=== PATIENT | male | born 1955 | race Caucasian/White ===

== ENCOUNTER 2017-08-29 19:19 | Emergency (ER) | payer OTHER ==
[~2017-08-29] VITALS: Ht 177.8 cm; Wt 99.1 kg
[2017-08-29] MEDS ORDERED: LISI-662 PO (19:23)
[2017-08-29] MEDS ORDERED: BACITRACIN 0.9 GM PACKET OINTMENT TP ONE (20:00)
[2017-08-29] MEDS ORDERED: PERTUSS(ACELL),DIPH,TET VAC/PF 0.5 ML VIAL IM ONE (20:00)
[2017-08-29] MEDS ORDERED: LIDOCAINE HCL/PF 1% 5 ML VIAL INJ ONE (20:00)
[2017-08-29 21:01] VITALS: BP 156/92
== END 2017-08-29 21:13 | disposition home or self-care (01) ==
LOC: EEVIPCON 19:20 → EMS 19:20
DX: S61.213A Laceration without foreign body of left middle finger without damage to nail, initial encounter (principal); I10 Essential (primary) hypertension; W45.8XXA Other foreign body or object entering through skin, initial encounter; Y93.89 Activity, other specified; Y92.89 Other specified places as the place of occurrence of the external cause; Y99.8 Other external cause status
CPT/HCPCS: 12001; 90471; 90715; 99283; J3490

== ENCOUNTER → 2017-09-15 | Outpatient (CLI) | payer OTHER ==
[~2017-09-15] MED LIST: LISI-662 PO; TNFMISC; albuterol IH
[2017-09-15 16:13] LABS: HEMOGLOBIN A1C 6.1 % (4.5-6.2)
[2017-09-15 16:27] LABS: ALANINE AMINOTRANSFERASE 47 U/L (12-78); ALBUMIN 4.2 g/dL (3.4-5.0); ALKALINE PHOSPHATASE 66 U/L (46-116); ANION GAP 11 mmol/L (8-16); ASPARTATE AMINOTRANSFERASE 26 U/L (15-37); BILIRUBIN,TOTAL 0.4 mg/dL (0.1-1.0); CALCIUM, TOTAL 8.9 mg/dL (8.8-10.5); CARBON DIOXIDE 23 mmol/L (22-29); CHLORIDE 103 mmol/L (98-107); CHOL/HDL RATIO 6.8 (4.2-7.3); CHOLESTEROL 271 mg/dL (131-200); CREATININE 1.06 mg/dL (0.60-1.30); GLOMERULAR FILTR. RATE CALC > 60 mL/min (>60); GLUCOSE,RANDOM 95 mg/dL (70-110); HDL CHOLESTEROL 40 mg/dL (40-60); LDL CHOL (CALC.) 161 mg/dL (0-130); POTASSIUM 4.4 mmol/L (3.5-5.1); SODIUM SERUM 137 mmol/L (136-145); THYROID STIMULATING HORMONE 1.54 uIU/mL (0.36-3.74); TOTAL PROTEIN, SERUM 7.6 g/dL (6.4-8.2); TRIGLYCERIDES 351 mg/dL (15-150); UREA NITROGEN, BLOOD 14 mg/dL (7-18)
[2017-09-15 16:34] LABS: PROSTATE SPECIFIC ANTIGEN 0.44 ng/mL (0.00-4.00)
[2017-09-16 10:00] LABS: VITAMIN B12 LEVEL 429 pg/mL (211-911)
[2017-09-16 10:02] LABS: FOLATE SERUM > 24.0 ng/mL (5.4-)
== END | disposition home or self-care (01) ==
LOC: MSR 10:36
PROVIDERS: ATTEND Internal Medicine Geriatric Medicine
DX: M51.37 Other intervertebral disc degeneration, lumbosacral region (principal); M77.8 Other enthesopathies, not elsewhere classified; M46.06 Spinal enthesopathy, lumbar region; M46.04 Spinal enthesopathy, thoracic region; I10 Essential (primary) hypertension
CPT/HCPCS: 72070; 72100; 82607; 82746; 83036; 84153; 84443

== ENCOUNTER 2019-04-14 04:53 | Emergency (ER) | payer OTHER ==
[~2019-04-14] VITALS: Ht 180.3 cm; Wt 100.0 kg
[2019-04-14 05:30] LABS: BASOPHILS % (AUTO) 0.5 % (0.0-2.0); EOSINOPHILS % (AUTO) 1.5 % (1.0-6.0); HEMATOCRIT 43.4 % (41-53); HEMOGLOBIN 14.8 g/dL (13.5-17.5); LYMPHOCYTES # (AUTO) 1.8 K/uL (1.0-4.8); LYMPHOCYTES % (AUTO) 24.9 % (22.0-44.0); MEAN CORPUSCULAR HEMOGLOBIN 29.1 pg (26.0-34.0); MEAN CORPUSCULAR HGB CONC 34.1 G/dL (31.0-37.0); MEAN CORPUSCULAR VOLUME 85 fL (80-100); MONOCYTES # (AUTO) 0.4 K/uL (0.1-1.0); MONOCYTES % (AUTO) 5.7 % (2.0-9.0); NEUTROPHILS % (AUTO) 67.4 % (40.0-70.0); PLATELET COUNT (AUTO) 244 K/uL (150-450); RED BLOOD CELL COUNT(AUTO) 5.09 MIL/uL (4.50-5.90); RED CELL DISTRIBUTION WIDTH 13.7 % (11.5-14.5)
[2019-04-14 05:31] LABS: APPEARANCE,URINE CLOUDY (CLEAR); BILIRUBIN,URINE NEGATIVE (NEGATIVE); GLUCOSE, URINE (UA) NEGATIVE (NEGATIVE); KETONES,URINE NEGATIVE (NEGATIVE); LEUKOCYTE ESTERASE ,URINE TRACE (NEGATIVE); NITRATE,URINE NEGATIVE (NEGATIVE); OCCULT BLOOD,URINE LARGE (NEGATIVE); PROTEIN,URINE POS 1+ (NEGATIVE); UROBILINOGEN,URINE 0.2 mg/dL (<=1.0)
[2019-04-14 05:37] LABS: ANION GAP 8 mmol/L (8-16); CALCIUM, TOTAL 8.6 mg/dL (8.8-10.5); CARBON DIOXIDE 27 mmol/L (22-29); CHLORIDE 105 mmol/L (98-107); CREATININE 0.97 mg/dL (0.60-1.30); GLOMERULAR FILTR. RATE CALC > 60 mL/min (>60); GLUCOSE,RANDOM 157 mg/dL (70-110); POTASSIUM 4.7 mmol/L (3.5-5.1); SODIUM SERUM 140 mmol/L (136-145); UREA NITROGEN, BLOOD 10 mg/dL (7-18)
[2019-04-14 05:44] LABS: ALANINE AMINOTRANSFERASE 40 U/L (12-78); ALKALINE PHOSPHATASE 62 U/L (46-116); ASPARTATE AMINOTRANSFERASE 22 U/L (15-37); BILIRUBIN,TOTAL 0.5 mg/dL (0.1-1.0); LIPASE 166 U/L (73-393); TOTAL PROTEIN, SERUM 7.2 g/dL (6.4-8.2)
[2019-04-14 05:45] LABS: BACTERIA,URINE Rare /HPF (None Seen); RBC,URINE >100 /HPF (0-2); SQUAMOUS EPITHELIAL CELL,UR Few /LPF (None Seen)
[2019-04-14] MEDS ORDERED: SODIUM CHLORIDE 0.9% 1,000 ML IV ONE (06:00)
[2019-04-14] MEDS ORDERED: KETOROLAC TROMETHAMINE 30 MG/ML VIAL IVP ONE (06:00)
[2019-04-14 07:25] VITALS: BP 151/89
== END 2019-04-14 07:56 | disposition home or self-care (01) ==
LOC: EMS 04:53
DX: N13.2 Hydronephrosis with renal and ureteral calculous obstruction (principal); I10 Essential (primary) hypertension
CPT/HCPCS: 36415; 74176; 80053; 81001; 83690; 85025; 96374; 99284; J1885; J7030

== ENCOUNTER 2019-04-16 10:22 | Emergency (ER) | payer OTHER ==
[~2019-04-16] VITALS: Ht 177.8 cm; Wt 100.0 kg
[2019-04-16] MEDS ORDERED: HYDR-4061 PO (10:35)
[2019-04-16 11:13] LABS: EOSINOPHILS % (AUTO) 1.1 % (1.0-6.0); LYMPHOCYTES # (AUTO) 1.3 K/uL (1.0-4.8); MONOCYTES # (AUTO) 0.6 K/uL (0.1-1.0)
[2019-04-16] MEDS ORDERED: SODIUM CHLORIDE 0.9% 1,000 ML IV ONE (11:15)
[2019-04-16] MEDS ORDERED: KETOROLAC TROMETHAMINE 30 MG/ML VIAL IVP ONE (11:15)
[2019-04-16 11:16] LABS: BASOPHILS % (AUTO) 0.3 % (0.0-2.0); HEMATOCRIT 42.2 % (41-53); HEMOGLOBIN 14.5 g/dL (13.5-17.5); LYMPHOCYTES % (AUTO) 14.6 % (22.0-44.0); MEAN CORPUSCULAR HEMOGLOBIN 29.5 pg (26.0-34.0); MEAN CORPUSCULAR HGB CONC 34.4 G/dL (31.0-37.0); MEAN CORPUSCULAR VOLUME 86 fL (80-100); MONOCYTES % (AUTO) 7.3 % (2.0-9.0); NEUTROPHILS # (AUTO) 6.7 K/uL (1.8-7.7); NEUTROPHILS % (AUTO) 76.7 % (40.0-70.0); PLATELET COUNT (AUTO) 238 K/uL (150-450); RED BLOOD CELL COUNT(AUTO) 4.92 MIL/uL (4.50-5.90); RED CELL DISTRIBUTION WIDTH 13.9 % (11.5-14.5)
[2019-04-16 11:19] LABS: BILIRUBIN,URINE NEGATIVE (NEGATIVE); GLUCOSE, URINE (UA) NEGATIVE (NEGATIVE); KETONES,URINE NEGATIVE (NEGATIVE); LEUKOCYTE ESTERASE ,URINE NEGATIVE (NEGATIVE); NITRATE,URINE NEGATIVE (NEGATIVE); OCCULT BLOOD,URINE LARGE (NEGATIVE); PROTEIN,URINE NEGATIVE (NEGATIVE); UROBILINOGEN,URINE 0.2 mg/dL (<=1.0)
[2019-04-16 11:25] LABS: ANION GAP 11 mmol/L (8-16); CALCIUM, TOTAL 8.8 mg/dL (8.8-10.5); CARBON DIOXIDE 23 mmol/L (22-29); CHLORIDE 102 mmol/L (98-107); CREATININE 0.88 mg/dL (0.60-1.30); GLOMERULAR FILTR. RATE CALC > 60 mL/min (>60); GLUCOSE,RANDOM 105 mg/dL (70-110); POTASSIUM 4.2 mmol/L (3.5-5.1); SODIUM SERUM 136 mmol/L (136-145); UREA NITROGEN, BLOOD 11 mg/dL (7-18)
[2019-04-16 11:50] LABS: ALANINE AMINOTRANSFERASE 39 U/L (12-78); ALKALINE PHOSPHATASE 61 U/L (46-116); ASPARTATE AMINOTRANSFERASE 22 U/L (15-37); BILIRUBIN,TOTAL 0.6 mg/dL (0.1-1.0); TOTAL PROTEIN, SERUM 7.3 g/dL (6.4-8.2)
[2019-04-16 11:52] LABS: APPEARANCE,URINE HAZY (CLEAR)
[2019-04-16 11:53] LABS: BACTERIA,URINE None Seen /HPF (None Seen); RBC,URINE 26-50 /HPF (0-2); WBC,URINE None Seen /HPF (0-5)
[2019-04-16 12:44] VITALS: BP 153/77
== END 2019-04-16 13:01 | disposition home or self-care (01) ==
LOC: EMS 10:24
DX: N20.9 Urinary calculus, unspecified (principal); I10 Essential (primary) hypertension; Z79.899 Other long term (current) drug therapy
CPT/HCPCS: 36415; 80053; 81001; 85025; 96374; 99283; J1885; J7030

== ENCOUNTER 2021-12-23 08:35 | Emergency (ER) | payer OTHER ==
[~2021-12-23] VITALS: Ht 177.8 cm; Wt 102.0 kg
[~2021-12-23 08:35] MED LIST changes: +HYDR-4061 PO; -LISI-662 PO; +LISI-894 PO; -TNFMISC; -albuterol IH
[2021-12-23] MEDS ORDERED: HYDROCODONE/ACETAMINOPHEN 5-325 MG TABLET PO ONE (09:45)
[2021-12-23 09:49] LABS: BASOPHILS % (AUTO) 0.5 % (0.0-2.0); EOSINOPHILS % (AUTO) 0.5 % (1.0-6.0); HEMATOCRIT 43.7 % (41-53); HEMOGLOBIN 14.8 g/dL (13.5-17.5); LYMPHOCYTES % (AUTO) 11.7 % (22.0-44.0); MEAN CORPUSCULAR HEMOGLOBIN 28.8 pg (26.0-34.0); MEAN CORPUSCULAR HGB CONC 33.9 G/dL (31.0-37.0); MEAN CORPUSCULAR VOLUME 85 fL (80-100); MONOCYTES # (AUTO) 0.5 K/uL (0.1-1.0); MONOCYTES % (AUTO) 6.5 % (2.0-9.0); NEUTROPHILS # (AUTO) 6.8 K/uL (1.8-7.7); NEUTROPHILS % (AUTO) 80.8 % (40.0-70.0); PLATELET COUNT (AUTO) 245 K/uL (150-450); RED BLOOD CELL COUNT(AUTO) 5.14 MIL/uL (4.50-5.90); RED CELL DISTRIBUTION WIDTH 14.3 % (11.5-14.5)
[2021-12-23 09:58] LABS: ANION GAP 9 mmol/L (8-16); CALCIUM, TOTAL 9.6 mg/dL (8.8-10.5); CARBON DIOXIDE 23 mmol/L (22-29); CHLORIDE 104 mmol/L (98-107); CREATININE 0.97 mg/dL (0.60-1.30); GLUCOSE,RANDOM 128 mg/dL (70-110); POTASSIUM 4.2 mmol/L (3.5-5.1); SODIUM SERUM 136 mmol/L (136-145); UREA NITROGEN, BLOOD 14 mg/dL (7-18)
[2021-12-23 10:00] LABS: GLOMERULAR FILTR. RATE CALC > 60 mL/min (>60)
[2021-12-23 10:03] LABS: ALANINE AMINOTRANSFERASE 54 U/L (12-78); ALKALINE PHOSPHATASE 62 U/L (46-116); ASPARTATE AMINOTRANSFERASE 22 U/L (15-37); BILIRUBIN,TOTAL 0.6 mg/dL (0.1-1.0); TOTAL PROTEIN, SERUM 7.3 g/dL (6.4-8.2)
[2021-12-23 13:58] VITALS: BP 143/76
[2021-12-23] MEDS ORDERED: TRAM50TA2 PO (14:07)
== END 2021-12-23 14:19 | disposition home or self-care (01) ==
LOC: EMS 08:35
DX: M25.532 Pain in left wrist (principal); V89.2XXA Person injured in unspecified motor-vehicle accident, traffic, initial encounter; Y93.89 Activity, other specified; Y92.89 Other specified places as the place of occurrence of the external cause; Y99.8 Other external cause status
CPT/HCPCS: 70450; 70486; 72040; 72131; 80053; 85025; 99285

== ENCOUNTER 2024-03-05 10:31 | Emergency (ER) | payer OTHER ==
[~2024-03-05] VITALS: Ht 177.8 cm; Wt 101.4 kg
[~2024-03-05 10:31] MED LIST changes: -HYDR-4061 PO
[2024-03-05 10:34] VITALS: TEMP 100.3
[2024-03-05 10:44] LABS: COVID AG,FIA SOURCE NASAL SWAB
[2024-03-05 11:09] LABS: INFLUENZA TYPE A NEGATIVE FOR TYPE A (NEGATIVE); INFLUENZA TYPE B NEGATIVE FOR TYPE B (NEGATIVE); SARS-COV2 (COVID) ANTIGEN,FIA Negative (Negative)
[2024-03-05 11:10] VITALS: PULSE 83; RESP 18; O2SAT 99
[2024-03-05] MEDS: ALBUTEROL SULFATE HFA 90 MCG/PUFF 8 GM INHALER IH ONE (11:11)
[2024-03-05 11:53] VITALS: PULSE 83; RESP 20; O2SAT 96
[2024-03-05] MEDS: ALBUTEROL SULFATE 2.5 MG/0.5 ML NEB SOLUTION NEB ONE (11:53)
[2024-03-05] MEDS: IPRATROPIUM BROMIDE 0.5 MG/2.5 ML NEB SOLUTION NEB ONE (11:53)
[2024-03-05 12:03] VITALS: PULSE 84; RESP 20; O2SAT 100
[2024-03-05] MEDS ORDERED: PRED-554 PO (12:24)
[2024-03-05 12:30] VITALS: BP 150/73; PULSE 80; RESP 16; O2SAT 100
[2024-03-05] MEDS: PredniSONE 20 MG TABLET PO ONE (12:32)
== END 2024-03-05 12:39 | disposition home or self-care (01) ==
LOC: EMS 10:37
DX: J45.901 Unspecified asthma with (acute) exacerbation (principal); J06.9 Acute upper respiratory infection, unspecified; B97.89 Other viral agents as the cause of diseases classified elsewhere; I10 Essential (primary) hypertension; Z90.89 Acquired absence of other organs; Z79.899 Other long term (current) drug therapy; Z20.822 Contact with and (suspected) exposure to COVID-19
CPT/HCPCS: 99285; 71045; 87426; 87804; 94640; J7512; J3535; J7613

== ENCOUNTER 2024-03-10 12:05 | Inpatient (IN) | payer OTHER ==
[2024-03-10] VITALS (12 sets, daily range): BP systolic 128–154; BP diastolic 81–84; PULSE 58–72; RESP 18–25; TEMP 97.5–98.7; O2SAT 93–100
[~2024-03-10] VITALS: Ht 177.8 cm; Wt 98.9 kg
[~2024-03-10 12:05] MED LIST changes: +PRED-554 PO
[2024-03-10] MEDS ORDERED: MAGNESIUM HYDROXIDE SUSPENSION 30 ML UDCUP PO PRN (12:45)
[2024-03-10] MEDS: IPRATROPIUM BROMIDE 0.5 MG/2.5 ML NEB SOLUTION NEB ONE ×2 (12:45→13:24)
[2024-03-10] MEDS ORDERED: ACETAMINOPHEN 325 MG TABLET PO PRN (12:45)
[2024-03-10] MEDS: ALBUTEROL SULFATE 2.5 MG/0.5 ML NEB SOLUTION NEB ONE ×2 (12:45→13:24)
[2024-03-10] MEDS ORDERED: OxyCODONE HCL/ACETAMINOPHEN 5-325 MG TABLET PO PRN (12:45)
[2024-03-10] MEDS ORDERED: ZOLPIDEM TARTRATE 5 MG TABLET PO PRN (12:45)
[2024-03-10] MEDS ORDERED: SODIUM CHLORIDE 0.9% 100 ML ONE (12:57)
[2024-03-10] MEDS ORDERED: IOHEXOL 350 MG/ML 100 ML VIAL ONE (12:57)
[2024-03-10] MEDS ORDERED: BENZONATATE 100 MG CAPSULE PO PRN (13:00)
[2024-03-10] MEDS: MethylPREDNISolone SOD SUCC 125 MG/2 ML VIAL IVP ONE (13:04)
[2024-03-10 13:20] LABS: HEMATOCRIT 40.3 % (41-53); HEMOGLOBIN 13.3 g/dL (13.5-17.5); MEAN CORPUSCULAR HEMOGLOBIN 28.3 pg (26.0-34.0); MEAN CORPUSCULAR HGB CONC 33.1 G/dL (31.0-37.0); MEAN CORPUSCULAR VOLUME 86 fL (80-100); PLATELET COUNT (AUTO) 279 K/uL (150-450); RED BLOOD CELL COUNT(AUTO) 4.72 MIL/uL (4.50-5.90); RED CELL DISTRIBUTION WIDTH 14.3 % (11.5-14.5); WHITE BLOOD COUNT (AUTO) 11.5 K/uL (4.5-11.0)
[2024-03-10 13:36] LABS: ANION GAP 9 mmol/L (8-16); CALCIUM, TOTAL 8.6 mg/dL (8.8-10.5); CARBON DIOXIDE 23 mmol/L (22-29); CHLORIDE 105 mmol/L (98-107); CREATININE 0.96 mg/dL (0.60-1.30); GLOMERULAR FILTR. RATE CALC > 60 mL/min (>60); GLUCOSE,RANDOM 109 mg/dL (70-110); POTASSIUM 4.1 mmol/L (3.5-5.1); SODIUM SERUM 137 mmol/L (136-145); UREA NITROGEN, BLOOD 23 mg/dL (7-18)
[2024-03-10 13:41] LABS: BAND NEUTROPHILS % (MANUAL) 9 % (0-5); EOSINOPHILS % (MANUAL) 1 % (1-6); LYMPHOCYTES % (MANUAL) 15 % (22-44); MONOCYTES % (MANUAL) 10 % (2-9); RBC MORPHOLOGY COMMENT NORMAL RBC MORPH; SEGMENTED NEUTROPHILS % 65 % (40-70); TOTAL CELLS COUNTED 100
[2024-03-10 13:51] LABS: TROPONIN I-HIGH SENSITIVITY 156 ng/L (<76)
[2024-03-10 14:00] LABS: INFLUENZA A-RTPCR,COMBO POSITIVE (NEGATIVE); INFLUENZA B-RTPCR,COMBO NEGATIVE (NEGATIVE); RESPIRATORY SYNCYTIAL VRS-PCR NEGATIVE (NEGATIVE); SARS COVID19 RTPCR, COMBO NEGATIVE (NEGATIVE)
[2024-03-10 14:18] LABS: BILIRUBIN,DIRECT 0.2 mg/dL (0.00-0.20); BILIRUBIN,TOTAL 0.6 mg/dL (0.1-1.0); TOTAL PROTEIN, SERUM 6.7 g/dL (6.4-8.2)
[2024-03-10] MEDS: MONTELUKAST SODIUM 10 MG TABLET PO SCH (14:35)
[2024-03-10] MEDS: LISINOPRIL 20 MG TABLET PO SCH (14:35)
[2024-03-10] MEDS: AZITHROMYCIN 500 MG/NS 250 ML IV SCH (14:36)
[2024-03-10] MEDS: BENZONATATE 100 MG CAPSULE PO SCH (14:50)
[2024-03-10 14:54] LABS: APPEARANCE,URINE CLEAR (CLEAR); BILIRUBIN,URINE NEGATIVE (NEGATIVE); COLOR,URINE LIGHT YELLOW (YELLOW); GLUCOSE, URINE (UA) NEGATIVE (NEGATIVE); KETONES,URINE NEGATIVE (NEGATIVE); LEUKOCYTE ESTERASE ,URINE NEGATIVE (NEGATIVE); NITRATE,URINE NEGATIVE (NEGATIVE); OCCULT BLOOD,URINE NEGATIVE (NEGATIVE); PROTEIN,URINE NEGATIVE (NEGATIVE); SPECIFIC GRAVITIY, URINE 1.025 (1.003-1.030); UROBILINOGEN,URINE <=1.0 mg/dL (<=1.0)
[2024-03-10] MEDS: BUDESONIDE 0.5 MG/2 ML NEB SOLUTION NEB SCH ×2 (16:02→21:00)
[2024-03-10] MEDS: HEPARIN SODIUM,PORCINE 5,000 UNITS/ML VIAL SQ SCH (18:36)
[2024-03-10] MEDS: MethylPREDNISolone SOD SUCC 125 MG/2 ML VIAL IVP SCH (18:37)
[2024-03-10 18:46] LABS: TROPONIN I-HIGH SENSITIVITY 123 ng/L (<76)
[2024-03-10] MEDS ORDERED: SODIUM CHLORIDE 0.9% 500 ML IV ONE (20:03)
[2024-03-10] MEDS: CefTRIAXone 1 GM/DEXTROSE 50 ML IV SCH (20:12)
[2024-03-10] MEDS: DOCUSATE SODIUM 100 MG CAPSULE PO SCH (20:12)
[2024-03-11] VITALS (13 sets, daily range): BP systolic 132–170; BP diastolic 73–89; PULSE 52–68; RESP 16–20; TEMP 97.6–98.1; O2SAT 94–99
[2024-03-11] MEDS: CloNIDine HCL 0.1 MG TABLET PO PRN (04:06)
[2024-03-11] MEDS: ASPIRIN 81 MG CHEWABLE TABLET PO SCH (07:49)
[2024-03-11] MEDS: PANTOPRAZOLE SODIUM 40 MG DR TABLET PO SCH (07:50)
[2024-03-11] MEDS: ROSUVASTATIN CALCIUM 10 MG TABLET PO SCH (15:55)
[2024-03-11] MEDS: ALBUTEROL SULFATE 2.5 MG/0.5 ML NEB SOLUTION NEB PRN (20:36)
[2024-03-11] MEDS: AmLODIPine BESYLATE 2.5 MG TABLET PO SCH (21:00)
[2024-03-12] VITALS (12 sets, daily range): BP systolic 135–167; BP diastolic 60–98; PULSE 51–82; RESP 18–20; TEMP 97.5–99.8; O2SAT 94–99
[2024-03-12 07:13] LABS: HEMATOCRIT 41.4 % (41-53); HEMOGLOBIN 13.7 g/dL (13.5-17.5); MEAN CORPUSCULAR HEMOGLOBIN 28.6 pg (26.0-34.0); MEAN CORPUSCULAR HGB CONC 33.2 G/dL (31.0-37.0); MEAN CORPUSCULAR VOLUME 86 fL (80-100); PLATELET COUNT (AUTO) 315 K/uL (150-450); RED BLOOD CELL COUNT(AUTO) 4.81 MIL/uL (4.50-5.90); RED CELL DISTRIBUTION WIDTH 13.7 % (11.5-14.5); WHITE BLOOD COUNT (AUTO) 21.3 K/uL (4.5-11.0)
[2024-03-12 07:21] LABS: BAND NEUTROPHILS % (MANUAL) 10 % (0-5); LYMPHOCYTES % (MANUAL) 16 % (22-44); MONOCYTES % (MANUAL) 6 % (2-9); RBC MORPHOLOGY COMMENT NORMAL RBC MORPH; SEGMENTED NEUTROPHILS % 68 % (40-70); TOTAL CELLS COUNTED 100
[2024-03-12 07:32] LABS: ANION GAP 10 mmol/L (8-16); CALCIUM, TOTAL 8.7 mg/dL (8.8-10.5); CARBON DIOXIDE 26 mmol/L (22-29); CHLORIDE 103 mmol/L (98-107); GLOMERULAR FILTR. RATE CALC > 60 mL/min (>60); GLUCOSE,RANDOM 186 mg/dL (70-110); POTASSIUM 4.7 mmol/L (3.5-5.1); SODIUM SERUM 139 mmol/L (136-145); UREA NITROGEN, BLOOD 28 mg/dL (7-18)
[2024-03-12] MEDS: MethylPREDNISolone SOD SUCC 125 MG/2 ML VIAL IVP SCH (15:35)
[2024-03-13] VITALS (12 sets, daily range): BP systolic 143–157; BP diastolic 64–81; PULSE 53–73; RESP 16–19; TEMP 97.5–98.2; O2SAT 92–97
[2024-03-13] MEDS: FLUTICASONE PROPIONATE 50 MCG/SPRAY 16 GM NASAL SPRAY NASAL SCH (11:45)
[2024-03-13] MEDS: PredniSONE 20 MG TABLET PO SCH (11:46)
[2024-03-13 14:32] LABS: ABG BASE EXCESS -4.1 mmol/L (-2.0-3.0); ABG CARBOXYHEMOGLOBIN 0.5 % (0.5-1.5); ABG HCO3 22.1 mmol/L (21.0-28.0); ABG OXYGEN CONTENT 20.5 mL/dL (15.0-23.0); ABG OXYHEMOGLOBIN 96.5 % (94.0-98.0); ABG PCO2 31 mmHg (32.0-48.0); ABG PH 7.436 (7.350-7.450); ABG TOTAL HEMOGLOBIN 15.1 G/dL (13.5-17.5); PO2, ARTERIAL BG 88.9 mmHg (83.0-108.0); SOURCE, BLOOD GAS ARTERIAL; TEMPERATURE, FAHRENHEIT, BG 97.8 FAHREN (96.0-98.6)
[2024-03-13 14:33] LABS: ALLEN TEST, BLOOD GAS POS; SITE, BLOOD GAS RT RADIAL
[2024-03-13] MEDS: HYDROCODONE/CHLORPHEN POLIS 10-8 MG/5 ML ORAL.SYG PO SCH (15:34)
[2024-03-14 00:02] VITALS: BP 142/69; PULSE 55; RESP 20; TEMP 97.9; O2SAT 97
[2024-03-14 01:30] VITALS: PULSE 61; RESP 13; O2SAT 95
[2024-03-14 04:49] VITALS: PULSE 59; RESP 16; O2SAT 96
[2024-03-14 05:21] VITALS: BP 168/84; PULSE 57; RESP 19; TEMP 97.6; O2SAT 98
[2024-03-14 09:00] VITALS: PULSE 68; RESP 16; RESP 18; O2SAT 97
[2024-03-14] MEDS: AmLODIPine BESYLATE 5 MG TABLET PO SCH (09:38)
[2024-03-14] MEDS ORDERED: AMLO-258 PO (10:52)
[2024-03-14] MEDS ORDERED: PRED-554 PO (10:52)
[2024-03-14] MEDS ORDERED: PANT-31 PO (10:52)
[2024-03-14] MEDS ORDERED: ASPI81TA87 PO (10:53)
[2024-03-14] MEDS ORDERED: AZIT-167 PO (10:54)
[2024-03-14] MEDS ORDERED: ROSU10TA72 PO (10:55)
[2024-03-14] MEDS ORDERED: ALBU18HF12 IH (10:56)
[2024-03-14] MEDS ORDERED: MONT-35 PO (10:57)
[2024-03-15 14:06] LABS: LEGIONELLA PNEUMO AG URINE Negative (Negative)
[2024-03-16 06:06] LABS: S PNEUMO SOURCE Urine; STREP PNEUMONIAE AG URINE Negative (Negative)
== END 2024-03-14 12:00 | disposition home or self-care (01) | DRG 193 ==
LOC: EMS 12:05 → EDH 12:48 → 5N 16:53
PROVIDERS: ADMIT Internal Medicine; ATTEND Internal Medicine
PROC: 5A09357 Assistance with Respiratory Ventilation, Less than 24 Consecutive Hours, Continuous Positive Airway Pressure (ICD-10-PCS; principal; 2024-03-12)
PROC: 5A09357 Assistance with Respiratory Ventilation, Less than 24 Consecutive Hours, Continuous Positive Airway Pressure (ICD-10-PCS; 2024-03-13)
PROC: 5A09357 Assistance with Respiratory Ventilation, Less than 24 Consecutive Hours, Continuous Positive Airway Pressure (ICD-10-PCS; 2024-03-14)
DX: J10.00 Influenza due to other identified influenza virus with unspecified type of pneumonia (principal); J96.01 Acute respiratory failure with hypoxia; J44.1 Chronic obstructive pulmonary disease with (acute) exacerbation; J45.901 Unspecified asthma with (acute) exacerbation; R04.2 Hemoptysis; J44.0 Chronic obstructive pulmonary disease with (acute) lower respiratory infection; J18.9 Pneumonia, unspecified organism; E66.9 Obesity, unspecified; I10 Essential (primary) hypertension; R79.89 Other specified abnormal findings of blood chemistry; G47.33 Obstructive sleep apnea (adult) (pediatric); E78.5 Hyperlipidemia, unspecified; I71.21 Aneurysm of the ascending aorta, without rupture; I71.40 Abdominal aortic aneurysm, without rupture, unspecified; I08.0 Rheumatic disorders of both mitral and aortic valves; Z20.822 Contact with and (suspected) exposure to COVID-19; D35.02 Benign neoplasm of left adrenal gland; K76.0 Fatty (change of) liver, not elsewhere classified; K76.89 Other specified diseases of liver; Z85.828 Personal history of other malignant neoplasm of skin; R00.1 Bradycardia, unspecified; Z79.899 Other long term (current) drug therapy; B34.9 Viral infection, unspecified; Z68.31 Body mass index [BMI] 31.0-31.9, adult
CPT/HCPCS: 0241U; 71045; 71275; 80048; 80076; 81003; 82805; 83880; 84484; 85025; 87449; 87899; 93005; 93306; 94640; 94660; 99285; J0456; J0696; J1644; J2919; J7040; J7050; 36415-L1; 36415-TC; J7613

== ENCOUNTER 2024-04-15 05:17 | Day surgery (SDC) | payer OTHER ==
[2024-04-15] VITALS (11 sets, daily range): BP systolic 110–139; BP diastolic 54–68; PULSE 58–66
[~2024-04-15] VITALS: Ht 177.8 cm; Wt 95.0 kg
[~2024-04-15 05:17] MED LIST changes: +AMLO-258 PO; +ASPI81TA87 PO; +CHOL25TA4 PO; +CYAN-119 PO; -PRED-554 PO; +ROSU10TA72 PO; +ZINC50CA3 PO
[2024-04-15] MEDS ORDERED: FentaNYL CITRATE PF 100 MCG/2 ML VIAL ONE (05:38)
[2024-04-15] MEDS ORDERED: PROPOFOL 1% ISO-OSM 1000 MG/100 ML BOTTLE ONE (05:38)
[2024-04-15] MEDS ORDERED: MIDAZOLAM HCL 2 MG/2 ML VIAL ONE (05:38)
[2024-04-15] MEDS ORDERED: SODIUM CHLORIDE 0.9% 1,000 ML ONE (06:27)
[2024-04-15] MEDS ORDERED: NITROGLYCERIN 50 MG/D5% WATER 250 ML ONE (06:43)
[2024-04-15] MEDS ORDERED: VERAPAMIL HCL 2.5 MG/ML 2 ML VIAL ONE (06:43)
[2024-04-15] MEDS ORDERED: BENZOCAINE 20% 50 MCG/SPRAY 57 GM ONE (06:43)
[2024-04-15] MEDS ORDERED: LIDOCAINE 2% VISCOUS 15 ML SOLUTION UDCUP ONE (06:43)
[2024-04-15] MEDS ORDERED: SODIUM BICARBONATE 50 MEQ/50 ML VIAL ONE (06:43)
[2024-04-15] MEDS ORDERED: IOHEXOL 300 MG/ML 100 ML VIAL ONE ×2 (06:43→07:27)
[2024-04-15] MEDS ORDERED: HEPARIN SODIUM 1000 UNITS/NS 1,000 ML ONE (06:43)
[2024-04-15] MEDS ORDERED: LIDOCAINE/PF 1% 30 ML VIAL ONE (06:43)
[2024-04-15] MEDS: SODIUM CHLORIDE 0.9% 1,000 ML IV ONE (07:15)
[2024-04-15] MEDS ORDERED: IOHEXOL 300 MG/ML 50 ML VIAL ONE (08:29)
[2024-04-15 08:40] LABS: GLUCOMETER DEV NAME(LOC) SDS.; GLUCOSE,POINT OF CARE 109 MG/DL (70-110)
[2024-04-15] MEDS: IOHEXOL 300 MG/ML 100 ML VIAL ICOR ONE (08:59)
[2024-04-15] MEDS: VERAPAMIL HCL 2.5 MG/ML 2 ML VIAL IARTER ONE (08:59)
[2024-04-15] MEDS: LIDOCAINE 1% 30 ML/SOD BICARB 8.4% 4 ML SQ ONE (09:00)
[2024-04-15] MEDS: HEPARIN SODIUM 1000 UNITS/NS 1,000 ML IARTER ONE (09:00)
[2024-04-15] MEDS: NITROGLYCERIN/D5W 50 MG/250 ML IV BOTTLE IARTER ONE (09:01)
[2024-04-15] MEDS: IOHEXOL 300 MG/ML 100 ML VIAL IARTER ONE (09:01)
[2024-04-15] MEDS: HEPARIN SODIUM,PORCINE 1,000 UNITS/ML 10 ML VIAL IARTER ONE (09:02)
[2024-04-15] MEDS ORDERED: AMLO10TA55 PO (09:35)
[2024-04-15] MEDS ORDERED: ROSU20TA98 PO (09:35)
[2024-04-15] MEDS ORDERED: ASPI-1444 PO (09:35)
== END 2024-04-15 13:20 | disposition home or self-care (01) ==
LOC: CATHLAB 05:17
PROVIDERS: ATTEND Internal Medicine Cardiovascular Disease
DX: I71.21 Aneurysm of the ascending aorta, without rupture (principal); J45.909 Unspecified asthma, uncomplicated; I10 Essential (primary) hypertension; I25.119 Atherosclerotic heart disease of native coronary artery with unspecified angina pectoris; I25.2 Old myocardial infarction; R93.41 Abnormal radiologic findings on diagnostic imaging of renal pelvis, ureter, or bladder; E11.9 Type 2 diabetes mellitus without complications; E66.3 Overweight; Z68.30 Body mass index [BMI] 30.0-30.9, adult; Z79.82 Long term (current) use of aspirin; Z79.899 Other long term (current) drug therapy; Z98.890 Other specified postprocedural states
CPT/HCPCS: 93005; 82962; 93312; 93458; J3010; J1644; J3490 ×4; J2250; J2704; J7030; Q9967